=== PATIENT | female | born 1995 | race Hispanic/Latino ===

== ENCOUNTER 2019-01-30 06:38 | Emergency (ER) | payer MEDICAID, OTHER ==
[2019-01-30 06:48] VITALS: RESP 18; TEMP 98; O2SAT 98
--- NOTE | 2019-01-30 07:25 | C.PDOC ---
History Of Present Illness 23 y.o. female with a hx of anxiety presents for evaluation of a panic attack that occurred last night. Pt states regular visits with a therapist where she works on breathing techniques for anxiety. She notes using breathing exercises last night with no improvement of panic attack which prompted ED visit. She notes no medications for anxiety or hx of anxiety attacks. In the ED the pt notes feeling better. Denies HI, SI, and any other associated symptoms. Time Seen by Provider: 01/30/19 07:11 Chief Complaint (Nursing): Anxiety History Per: Patient History/Exam Limitations: no limitations Onset/Duration Of Symptoms: Hrs Current Symptoms Are (Timing): Gone Modifying Factor(s): None Associated Symptoms: Anxiety Recent travel outside of the [place]: No Past Medical History Reviewed: Historical Data, Nursing Documentation, Vital Signs Vital Signs: Last Vital Signs Temp 98 F 01/30/19 06:42 Pulse 120 H 01/30/19 06:42 Resp 18 01/30/19 06:42 BP 129/92 H 01/30/19 06:42 Pulse Ox 98 01/30/19 06:42 Primary Care Provider: FAMILY PROVIDER,NO - Medical History PMH: Anxiety Family History: States: Unknown Family Hx - Social History Hx Alcohol Use: Yes Hx Substance Use: Yes - Immunization History Hx Tetanus Toxoid Vaccination: No Hx Influenza Vaccination: No Hx Pneumococcal Vaccination: No Review Of Systems Except As Marked, All Systems Reviewed And Found Negative. Psych: Positive for: Anxiety, Other (panic attack. ). Negative for: Suicidal ideation ((-) homicidal ideations. ) Physical Exam - Physical Exam Appears: Non-toxic, No Acute Distress Skin: Warm, Dry Head: Atraumatic, Normacephalic Eye(s): bilateral: Normal Inspection Oral Mucosa: Moist Neck: Normal ROM, Supple Chest: Symmetrical, No Deformity Cardiovascular: Rhythm Regular, No Murmur Respiratory: Normal Breath Sounds, No Rales, No Rhonchi, No Wheezing Gastrointestinal/Abdominal: Normal Exam, Soft, No Tenderness Extremity: Bilateral: Atraumatic, Normal Color And Temperature, Normal ROM Neurological/Psych: Oriented x3, Normal Speech, Normal Cognition ED Course And Treatment O2 Sat by Pulse Oximetry: 98 (RA) Pulse Ox Interpretation: Normal Medical Decision Making Medical Decision Making: Initial plan: -EKG -Crisis Evaluation Progress/Update: Pt refuses medication(s) in the ED. Pt wants to be seen by a counselor to set up an appointment as outpatient. Stable for discharge home. Disposition - Disposition Disposition: HOME/ ROUTINE Disposition Time: 07:52 Condition: STABLE Additional Instructions: Follow up with outpatient mental health clinic. Return to ED if feel worse. Instructions: Anxiety, Adult (DC) Forms: [employer] [facility] (Hungarian), Work Excuse - Clinical Impression Clinical Impression: Anxiety - PA / [employer] / Resident Statement MD/DO has reviewed & agrees with the documentation as recorded. - Scribe Statement The provider has reviewed the documentation as recorded by the Scribe (Leah Bowles) All medical record entries made by the Scribe were at my direction and personally dictated by me. I have reviewed the chart and agree that the record accurately reflects my personal performance of the history, physical exam, medical decision making, and the department course for this patient. I have also personally directed, reviewed, and agree with the discharge instructions and disposition.
[2019-01-30 07:28] VITALS: BP 116/72; PULSE 92
--- NOTE | 2019-02-03 00:04 | CARD ---
APPROVED REPORT Date of service: 01/30/2019 EKG Measurement Heart [id number] <Conclusion> Sinus tachycardia Possible Left atrial enlargement Borderline ECG
== END 2019-01-30 08:01 | disposition home or self-care (01) ==
LOC: C.ER 06:38
DX: F41.9 Anxiety disorder, unspecified (principal)